=== PATIENT | male | born 1970 | race Caucasian/White ===

== ENCOUNTER 2021-05-13 17:18 | Emergency (ER) | payer OTHER ==
[~2021-05-13] VITALS: Ht 185.4 cm; Wt 118.3 kg
[2021-05-13 17:21] VITALS: BP 160/81
[2021-05-13] MEDS ORDERED: KETOROLAC 30 MG/1 ML IM ONE (18:00)
[2021-05-13] MEDS ORDERED: KETOROLAC 30 MG/1 ML ONE (18:05)
--- NOTE | 2021-05-13 18:14 | NUR ---
BREAK RN: PT. REQUESTING X-RAY BE TAKEN OF HIS SHOULDER; DISCUSSED WITH LYNDSEY MCLAUGHLIN. ORDER RECEIVED.
--- NOTE | 2021-05-13 19:24 | NUR ---
PT TO XRAY.
== END 2021-05-13 20:31 | disposition home or self-care (01) ==
LOC: ED 17:48
DX: S43.422A Sprain of left rotator cuff capsule, initial encounter (principal); X50.0XXA Overexertion from strenuous movement or load, initial encounter; Y93.89 Activity, other specified; Y92.69 Other specified industrial and construction area as the place of occurrence of the external cause; Y99.8 Other external cause status
CPT/HCPCS: 73030; 96372; 99283; J1885